=== PATIENT | male | born 1955 | race Caucasian/White ===

== ENCOUNTER 2020-05-27 10:05 | Day surgery (SDC) | payer OTHER, SELFPAY ==
[2020-05-26 15:54] VITALS: BMI 41.9
[2020-05-27] VITALS (7 sets, daily range): BP systolic 148–168; BP diastolic 92–101; PULSE 77–89; RESP 16–20; TEMP 36.3–36.7; O2SAT 94–99
[2020-05-27] MEDS: sodium chloride 0.9% 1,000 ML 30 ML IV (11:33)
--- NOTE | 2020-05-27 11:43 | P.ANESASSM_ITS ---
Pre-Anesthetic Assessment Pre-Anesthetic Assessment: Height/Weight: Height 1.85 m Weight 144.242 kg Temp Pulse Resp BP Pulse Ox 98.0 F 78 17 168/96 94 05/27/20 11:14 05/27/20 11:14 05/27/20 11:14 05/27/20 11:14 05/27/20 11:14 Preop Diagnosis: umbililcal hernia Proposed Procedure: Operation Date: 05/27/20 12:00 Proposed Procedures p Laparoscopic poss open Umbilical Hernia Repair w/ Mesh 58541 k42.9(Not Applicable) - Vivek Dominguez MD Was Beta Randi taken within 24 hours: Yes Social: Social History: No alcohol and No tobacco Exam: Pre-Anes Outpt Exam: alert, oriented x 3, clear to auscultation bilaterally and regular rate & rhythm Airway: Submandibular: Other (limited) Cervical ROM: Other (limited) MP: 3 Pulmonary: Pulmonary: Sleep apnea CV/HEM: CV/HEM: HTN : : None reported Hepatic: Hepatic: None reported GI: GI: None reported Metabolic: Metabolic: Morbid obesity Musc/skel: Musc/skel: None reported Neuropsych: Neuropsych: None reported Anesthetic Plan: ASA status: 3 Meds/Allergies Current Medications: Current Medications Generic Name Dose Route Start Last Admin Trade Name Freq PRN Reason Stop Dose Admin Sodium Chloride 1,000 mls @ 30 ml s/hr 05/27/20 11:45 05/27/20 11:33 Sodium Chloride 0.9% IV 30 mls/hr .Q24H MARCE Administration PFSH Anesthesia PFSH: Medical History Hypertension Surgical History H/O circumcision History of appendectomy S/P bilateral inguinal hernia repair Family History Other Cancer Denies family history of Diabetes CAD (coronary artery disease) Anesthesia complication Bleeding disorder Social History Smoking and tobacco status: never smoked Alcohol intake: current Alcohol intake frequency: few times a week Alcohol type: beer Household members: spouse Marital status: Current occupational status: employed History of recent travel: Yes Details: [place] Out of state: Yes Data Anesthesia Cardiac Studies: No Data to Display
--- NOTE | 2020-05-27 11:50 | P.HP_ITS ---
Same Day Surgery H&P Indication for Procedure/HPI DATE OF PROCEDURE: May 27, 2020 CHIEF COMPLAINT/INDICATIONFOR SURGICAL PROCEDURE: umbilical hernia PREOP DIAGNOSIS: umbililcal hernia PLANNED PROCEDRUE: Operation Date: 05/27/20 12:00 Proposed Procedures p Laparoscopic poss open Umbilical Hernia Repair w/ Mesh 30073 k42.9(Not Applicable) - Vivek Dominguez MD Medications/Allergies* Home Medications Medication Instructions Recorded Confirmed Type B-complex with vitamin C 1 tab PO DAILY 04/27/20 05/27/20 History aspirin 81 mg tablet,delayed 81 mg PO DAILY 04/27/20 05/27/20 History release glucosamine HCl 750 mg tablet 750 mg PO BID 04/27/20 05/27/20 History metoprolol tartrate 25 mg tablet 25 mg PO BID 04/27/20 05/27/20 History multivitamin 1 tab PO DAILY 04/27/20 05/27/20 History Allergies/Adverse Reactions Allergy/AdvReac Type Severity Reaction Status Date / Time Penicillins Allergy Unconscious Verified 05/26/20 15:52 Current Medications: Generic Name Dose Route Start Last Admin Trade Name Freq PRN Reason Stop Dose Admin Sodium Chloride 1,000 mls @ 30 mls/hr 05/27/20 11:45 05/27/20 11:33 Sodium Chloride 0.9% IV 30 mls/hr .Q24H MARCE Administration Pertinent History/Comorbid Conditions* Medical History (Updated 04/28/20 @ 13:22 by Vivek Dominguez MD) Hypertension Surgical History (Updated 04/28/20 @ 13:22 by Vivek Dominguez MD) H/O circumcision History of appendectomy S/P bilateral inguinal hernia repair Family History (Updated 04/27/20 @ 15:57 by Lorraine Lee LPN) Cancer Denies family history of Diabetes CAD (coronary artery disease) Anesthesia complication Bleeding disorder Social History Smoking and tobacco status: never smoked Alcohol intake: current Alcohol intake frequency: few times a week Alcohol type: beer Household members: spouse Marital status: Current occupational status: employed History of recent travel: Yes Details: [place] Out of state: Yes Pertinent Exam Findings alert, oriented x 3 and regular rate & rhythm Recommendations Surgery/Procedure today Coding Level of Care Code Acute Bobtail Driver for Chg Victor Hugo
--- NOTE | 2020-05-27 11:50 | W.PM.OPSUD ---
Surgery/Procedure H&P Update DATE OF PROCEDURE: May 27, 2020 H&P UPDATE INFORMATION: I have reviewed H&P completed within last 30 days, I have examined patient prior to procedure and No changes to prior documentation PREOP DIAGNOSIS: umbililcal hernia PLANNED PROCEDURE: Operation Date: 05/27/20 12:00 Proposed Procedures p Laparoscopic poss open Umbilical Hernia Repair w/ Mesh [id number] k42.9(Not Applicable) - Vivek Dominguez MD
[2020-05-27] MEDS: vancomycin 1,000 MG in sodium chloride 0.9% 250 ML 250 MG IV (12:08)
--- NOTE | 2020-05-27 14:31 | PM.OP ---
Operative Report Date of procedure: May 27, 2020 Pre-op Diagnosis: Incarcerated umbilical hernia Post-op Diagnosis: Incarcerated umbilical and ventral hernia containing omentum Procedure Done: Laparoscopic repair of incarcerated umbilical hernia using Proceed mesh measuring 15 x 15 cm Pathology: none sent Surgeon: Vivek Dominguez Anesthesia: General Condition: stable Disposition: PACU Procedure: The patient was taken to the Operating Room and was intubated under general anesthesia after the antibiotic had been administered. The abdomen was prepped and draped in a sterile manner. Using a 15 blade, a 2-cm incision was made in the left upper quadrant in the anterior axillary line and pneumoperitoneum was created using Verres needle. A 10 mm Henny port was placed and 15 mm of pneumoperitoneum was created after a 10 mm 30? scope had been introduced. Two 5 mm ports were placed at the level of the umbilicus and in the left lower quadrant under direct visualization. Using a combination of electrocautery and scissors the peritoneum in the midline was taken down and the omental fat within the hernial sac was reduced. A spinal needle was introduced through the abdominal wall and the edges of the 2 hernial defects were marked and measured 6 x 6 cm. A 4 cm margin was marked on the abdominal wall on the outer edge of the hernial defect. 15 x 15 cm proceed mesh was selected and 4 separate 2-0 [place]-Casimiro sutures were placed at the 4 corners of the mesh. A 5 mm camera was introduced and the mesh was introduced through the 10 mm port. Grannie needle was passed through the stab incisions and used to grasp the free ends of the [place]-Casimiro sutures which were used to pull the mesh up against the abdominal wall; 5 mm SecurStraps were placed 1 cm apart along the edge of the mesh to hold it against the abdominal wall. At the end of this, it was noted that the mesh was well positioned over the hernial defect. All ports were removed under direct visualization and there was no bleeding noted from the port sites. 20 cc of saline mixed with 20 of Exparel mixed with 20 cc of 0.5% Marcaine was infiltrated under laparoscopic visualization for a TAP block. The external oblique aponeurosis was approximated at this port site using figure of eight 0 Vicryl suture. The subcutaneous tissue was approximated using 3-0 Vicryl sutures. The skin at all 3 port sites was closed using subcuticular 4-0 Monocryl suture. The stab incisions and the 3 port sites were covered with surgical glue. Abdominal binder was placed at the end of the procedure. Associated Problem List Diagnoses (1) Umbilical hernia:
[2020-05-27] MEDS: HYDROcodone-acetaminophen 5-325 mg Tablet 1 TAB PO (14:52)
--- NOTE | 2020-05-27 16:40 | ANE.PACU2 ---
Inpatient post-anesthesia follow up: Airway intact: Yes Vital signs: Temperature 97.4 F Pulse Rate 80 Respiratory Rate 18 Blood Pressure 165/92 Pulse Oximetry 95 Oxygen Delivery Me thod Room Air Oxygen Flow Rate 6 Fraction of Inspir ed Oxygen Hydration adequate: Yes Nausea and vomiting: No Pain level: 3 Mental status: Baseline
== END 2020-05-27 15:22 | disposition home or self-care (01) ==
PROVIDERS: PCP Family Medicine; Visit Provider Surgery
PROC: 0WQF4ZZ Repair Abdominal Wall, Percutaneous Endoscopic Approach (ICD-10-PCS; CPT 49587; principal; 2020-05-27 12:00)
DX: K42.0 Umbilical hernia with obstruction, without gangrene (principal); G47.30 Sleep apnea, unspecified; I10 Essential (primary) hypertension; E66.01 Morbid (severe) obesity due to excess calories; Z68.41 Body mass index [BMI] 40.0-44.9, adult
CPT/HCPCS: 49587; 12345; 96365; C9290; J0131; J0330; J1100; J2405; J2704; J3010; J3370; J3490; J7030; J7050